=== PATIENT | female | born 1995 | race Caucasian/White ===

== ENCOUNTER 2019-06-16 12:51 | Emergency (ER) | payer OTHER ==
[~2019-06-16] VITALS: Ht 172.7 cm; Wt 77.1 kg
[2019-06-16 13:13] VITALS: BP 135/80
--- NOTE | 2019-06-16 13:52 | NUR ---
Patient ambulated to bed 2. RN evaluating patient at bedside.
--- NOTE | 2019-06-16 13:58 | NUR ---
24YO F C/O PALPITATIONS X 3 DAYS. PT STATES THAT SHE CONSUMED MARIJANA EDIBLES 3 DAYS AGO AND HAS NOT BEEN FEELING HERSELF LATELY. PT IS ALSO CONSIDERING ALLERGY TO CEVICHE/FISH SHE HAS FELT SAME SYMPTOMS IN THE PAST AFTER CONSUMING FISH. +NAUSEA, -VOMITING, -, -CP. AAOX4 WITH EVEN AND STEADY GAIT; LUNGS CLEAR BL; HR EVEN AND REGULAR; PATIENT STATES PAIN OF 0/10 AT THIS TIME; VSS; PATIENT POSITIONED FOR COMFORT; HOB ELEVATED; BEDRAILS UP X2; BED DOWN. ER MD MADE AWARE OF PT STATUS. [facility] DENIES PM[facility] NO MEDS
[2019-06-16 15:35] VITALS: BP 135/80
== END 2019-06-16 15:35 | disposition home or self-care (01) ==
LOC: MED 12:51
DX: F41.9 Anxiety disorder, unspecified (principal); F12.10 Cannabis abuse, uncomplicated
CPT/HCPCS: 99283